=== PATIENT | female | born 1990 | race Caucasian/White ===

== ENCOUNTER 2021-08-26 12:30 | Observation (INO) | payer MEDICAID, OTHER ==
[~2021-08-26] VITALS: Ht 142.2 cm; Wt 78.9 kg
[2021-08-26] MEDS ORDERED: PREN-55 PO (14:59)
== END 2021-08-26 15:15 | disposition home or self-care (01) ==
LOC: 8 EST LDRP 12:30
PROVIDERS: ADMIT Obstetrics & Gynecology; ATTEND Obstetrics & Gynecology
DX: O46.93 Antepartum hemorrhage, unspecified, third trimester (principal); O60.03 Preterm labor without delivery, third trimester; Z3A.36 36 weeks gestation of pregnancy
CPT/HCPCS: 59025; 76805; 76818; G0378; 99281

== ENCOUNTER 2021-08-31 13:24 | Inpatient (IN) | payer OTHER ==
[~2021-08-31] VITALS: Ht 142.2 cm; Wt 81.6 kg
[~2021-08-31 13:24] MED LIST: PREN-55 PO
[2021-08-31] MEDS ORDERED: METHYLERGONOVINE MALEATE 0.2 MG/ML IM PRN ×2 (14:30→18:00)
[2021-08-31] MEDS ORDERED: LIDOCAINE HCL 1% 20ML VIAL (Pyxis) INJ INFIL SCH (14:30)
[2021-08-31] MEDS ORDERED: CARBOPROST TROMETHAMINE 250 MCG/ML AMPUL IM PRN (14:30)
[2021-08-31] MEDS ORDERED: PENICILLIN G POTASSIUM 5 MMU in DEXT 5% WATER 100 ML IV SCH (14:30)
[2021-08-31] MEDS ORDERED: MISOPROSTOL 100MCG TABLET VG SCH (14:30)
[2021-08-31] MEDS: LACTATED RINGERS 1,000 ML IV SCH ×2 (14:30→16:40)
[2021-08-31] MEDS ORDERED: NALOXONE HCL 0.4 MG/ML 1ML VIAL IM PRN (14:30)
[2021-08-31] MEDS ORDERED: BUTORPHANOL TARTRATE 2 MG/ML VIAL IV PRN (14:30)
[2021-08-31 15:55] LABS: BASOPHILS % 0.2 % (0.0-2.0); EOSINOPHILS % 0.6 % (0.0-5.0); HEMATOCRIT. 42.2 % (36.0-48.0); HEMOGLOBIN. 14.5 g/dL (12.0-16.0); LYMPHOCYTES % 21.4 % (20.0-50.0); MEAN CORPUSCULAR VOLUME 90.1 fL (81.0-99.0); MEAN PLATELET VOLUME 8.4 fl (7.4-10.4); MONOCYTES % 6.3 % (2.0-8.0); NEUTROPHILS % 71.5 % (40.0-76.0); PLATELET 234 x1000/uL (130-400); RED BLOOD CELL COUNT 4.68 mill/uL (4.2-5.4)
[2021-08-31 16:05] LABS: INR 0.9; PROTHROMBIN TIME 9.5 sec (9.6-11.0)
[2021-08-31 16:27] LABS: CLARITY URINE CLEAR (CLEAR); COLOR URINE YELLOW (YELLOW); KETONES URINE NEGATIVE (NEGATIVE); LEUKOCYTE ESTERASE URINE TRACE (NEGATIVE); NITRITE URINE NEGATIVE (NEGATIVE); OCCULT BLOOD URINE 2+ (NEGATIVE); PROTEIN URINE 1+ (NEGATIVE); SPECIFIC GRAVITY URINE 1.022 (1.005-1.030)
[2021-08-31 16:32] LABS: HEPATITIS B SURFACE ANTIGEN NEGATIVE
[2021-08-31 16:42] LABS: *AMPHETAMINES SCREEN URINE NEGATIVE (NEGATIVE); *BARBITURATES SCREEN URINE NEGATIVE (NEGATIVE); *BENZODIAZEPINES SCREEN URINE NEGATIVE (NEGATIVE); *COCAINE SCREEN URINE NEGATIVE (NEGATIVE); CANNABINOID URINE SCREEN NEGATIVE (NEGATIVE); METHADONE URINE SCREEN NEGATIVE (NEGATIVE); OPIATES URINE SCREEN NEGATIVE (NEGATIVE); PHENCYCLIDINE URINE SCREEN NEGATIVE (NEGATIVE)
[2021-08-31] MEDS: OXYTOCIN 30 UNITS/500ML NS PMX 500 ML IV SCH ×2 (16:59→19:02)
[2021-08-31] MEDS ORDERED: RHO(D) IMMUNE GLOBULIN 300 MCG/SYR IM PRN (18:00)
[2021-08-31] MEDS ORDERED: HEMORRHOIDAL SUPP PR PRN (18:00)
[2021-08-31] MEDS ORDERED: DIPHENHYDRAMINE 25MG CAPSULE PO PRN (18:00)
[2021-08-31] MEDS ORDERED: GLYCERIN/WITCH HAZEL LEAF MEDICATED PAD TOP PRN (18:00)
[2021-08-31] MEDS ORDERED: ACETAMINOPHEN WITH CODEINE 300/30MG TABLET PO PRN (18:00)
[2021-08-31] MEDS ORDERED: IBUPROFEN 400MG TABLET PO PRN (18:00)
[2021-08-31] MEDS ORDERED: LANOLIN OINT 7GM TUBE TOP PRN (18:00)
[2021-08-31] MEDS ORDERED: BENZOCAINE/LANOLIN/ALOE VERA SPRAY TOP PRN (18:00)
[2021-08-31] MEDS ORDERED: OXYTOCIN 30 UNITS/500ML NS PMX 500 ML IV SCH (18:30)
[2021-08-31 19:20] VITALS: BP 121/65
[2021-08-31 20:00] VITALS: BP 122/78
[2021-08-31] MEDS ORDERED: PENICILLIN G POTASSIUM 2.5 MMU in DEXTROSE 5% WATER 50 ML IV SCH (20:00)
[2021-08-31] MEDS: IBUPROFEN 800MG TABLET PO PRN (20:16)
[2021-08-31] MEDS: MAGNESIUM/ALUMINUM HYDROXIDE/SIMETHICONE 30ML UDC PO SCH (20:16)
[2021-08-31 20:30] VITALS: BP 119/68
[2021-09-01 04:00] VITALS: BP 114/57
[2021-09-01 06:11] LABS: BASOPHILS % 0.2 % (0.0-2.0); EOSINOPHILS % 0.5 % (0.0-5.0); HEMATOCRIT. 38.9 % (36.0-48.0); HEMOGLOBIN. 13.7 g/dL (12.0-16.0); LYMPHOCYTES % 19.3 % (20.0-50.0); MEAN CORPUSCULAR HEMOGLOBIN 31.1 pg (28.0-32.0); MEAN CORPUSCULAR VOLUME 88.6 fL (81.0-99.0); MEAN PLATELET VOLUME 8.3 fl (7.4-10.4); MONOCYTES % 7.9 % (2.0-8.0); NEUTROPHILS % 72.1 % (40.0-76.0); PLATELET 190 x1000/uL (130-400); RED BLOOD CELL COUNT 4.39 mill/uL (4.2-5.4); RED CELL DISTRIBUTION WIDTH 13.8 % (11.6-14.6)
[2021-09-01 07:45] VITALS: BP 123/67
[2021-09-01] MEDS: FERROUS SULFATE 325MG TABLET PO SCH (08:06)
[2021-09-01] MEDS: MAGNESIUM/ALUMINUM HYDROXIDE/SIMETHICONE 30ML UDC PO SCH ×2 (08:07→20:21)
[2021-09-01] MEDS: PRENATAL VIT/FE FUMARATE/FA TABLET PO SCH (08:07)
[2021-09-01 20:00] VITALS: BP 109/71
[2021-09-01] MEDS: IBUPROFEN 800MG TABLET PO PRN (20:21)
[2021-09-02 04:30] VITALS: BP 108/57
[2021-09-02] MEDS: FERROUS SULFATE 325MG TABLET PO SCH (07:30)
[2021-09-02] MEDS: MAGNESIUM/ALUMINUM HYDROXIDE/SIMETHICONE 30ML UDC PO SCH (07:30)
[2021-09-02] MEDS: PRENATAL VIT/FE FUMARATE/FA TABLET PO SCH (08:01)
[2021-09-02 08:30] VITALS: BP 102/49
== END 2021-09-02 11:10 | disposition home or self-care (01) | DRG 560 ==
LOC: OBSVTOIN 13:24 → 8 EST LDRP 13:24 → 8EST 19:10
PROVIDERS: ADMIT Obstetrics & Gynecology; ATTEND Obstetrics & Gynecology
PROC: 10D07Z6 Extraction of Products of Conception, Vacuum, Via Natural or Artificial Opening (ICD-10-PCS; principal; 2021-08-31)
DX: O60.14X0 Preterm labor third trimester with preterm delivery third trimester, not applicable or unspecified (principal); Z37.0 Single live birth; Z20.822 Contact with and (suspected) exposure to COVID-19; Z3A.36 36 weeks gestation of pregnancy
CPT/HCPCS: 36415; 80305; 81003; 85025; 86592; 86703; 86762; 86850; 86900; 87340; 87426; 99281; J0595; J2540; J3490; J7060; J7120; J2590